=== PATIENT | male | born 1945 | race Caucasian/White ===

== ENCOUNTER 2018-12-18 09:34 | Emergency (ER) | payer OTHER ==
[2018-12-18] MEDS ORDERED: Alum Hydrox/Mag Hydrox/Simeth 30 ML, Lidocaine 2% 15 ML PO ONE ×2 (10:02)
[2018-12-18] MEDS ORDERED: Aluminum Hydroxide/Magnesium Hydroxide/Simethicone Susp 30 ML Cup PO ONE ×2 (10:33→15:36)
[2018-12-18] MEDS ORDERED: Sodium Chloride 0.9% 10 ML Syringe FLUSH PRN (10:47)
[2018-12-18] MEDS ORDERED: Pantoprazole 40 MG Vial IVPUSH ONE (11:23)
--- NOTE | 2018-12-18 11:39 | CRLCR ---
INDICATION: PAIN PRIOR SENT FROM 11-12-2014 TECHNIQUE: Chest 1 view. COMPARISON: 11/12/14 FINDINGS: Cardiovascular and mediastinum: Heart size and vasculature are normal in caliber and appearance. Mediastinum is within normal limits. Lungs and pleural space: Lungs are clear. No sign of infiltrate or mass. No sign of pleural effusion. No pneumothorax. Bones and soft tissues: No significant findings. IMPRESSION: Unremarkable chest. Dictated by: Shayan Pruitt MD @ 12/18/2018 11:39:00 (Electronically Signed)
[2018-12-18] MEDS ORDERED: Nitroglycerin 0.4 MG Tab.SL SL ONE (11:54)
[2018-12-18] MEDS ORDERED: HYDROmorphone 1 MG/ML Syringe IVPUSH ONE (12:22)
[2018-12-18] MEDS ORDERED: Ondansetron 4 MG/2 ML SDV IVPUSH ONE (12:22)
[2018-12-18] MEDS ORDERED: Sodium Chloride 0.9% 10 ML Syringe FLUSH ONE (12:36)
[2018-12-18] MEDS ORDERED: Iopamidol 612 MG/ML 100 ML Bottle IV SCH (12:45)
[2018-12-18] MEDS ORDERED: Sodium Chloride 0.9% 80 ML IV SCH (12:45)
--- NOTE | 2018-12-18 15:08 | CRLCT ---
Indication: Right-sided chest pain Technique: Contrast enhanced CT chest abdomen and pelvis 100 mL Isovue. Comparison: No comparison studies are available Findings: Normal caliber thoracic aorta. Heart size is normal. No mediastinal or hilar adenopathy. No effusion. There is no central endobronchial lesion. Basilar atelectasis. Probable mucus plugging in the left lower lobe. Trace left effusion. Bibasilar atelectasis. Liver pancreas adrenal glands, spleen appears unremarkable. Cholecystectomy. No significant biliary dilatation. Symmetric enhancement of both kidneys. Abundant stool in the colon. There is diverticulosis. Bowel is otherwise unremarkable. Prostate gland is mildly prominent. Urinary bladder is unremarkable. No suspicious bony lesions. Impression: 1. No acute findings in the chest abdomen or pelvis. 2. Probable mucous plugging left lower lobe. 3. Diverticulosis. 4. Mild prominence of the prostate gland. Please note that all CT scans at this facility use dose modulation, iterative reconstruction, and/or weight-based dosing when appropriate to reduce radiation dose to as low as reasonably achievable. Dictated by Francesca Boggs MD @ Dec 18 2018 2:58PM Signed by Dr. Francesca Boggs @ Dec 18 2018 3:07PM
[2018-12-18 16:26] VITALS: BP 149/96; PULSE 70
--- NOTE | 2018-12-18 17:52 | EDM.PDOC ---
ED HPI GENERAL MEDICAL PROBLEM - General Chief Complaint: Chest Pain Stated Complaint: CHEST PAIN Time Seen by Provider: 12/18/18 10:01 Source of Information: Reports: Patient History Limitations: Reports: No Limitations - History of Present Illness INITIAL COMMENTS - FREE TEXT/NARRATIVE: This patient comes in complaining of chest pain. It seemed to start about 9 AM. He says it's from the upper substernal area down into the right side of the lower chest. He said it's a burning type of pain. He tried to throw up and he burped a little bit that helped just a little bit but still doesn't go away. He didn't try taking anything for it. He burped a couple more times and that helped a little bit. He denies any kind of heart trouble denies any thing like reflux. He had his gallbladder removed long ago. There is no shortness of breath and he denies nausea. He does say that sitting up seems to help a little bit. He described initially the pain is about a 7 out of 9 Chest Pain Score (Numeric/FACES): 6 - Related Data Allergies Allergy/AdvReac Type Severity Reaction Status Date / Time No Known Allergies Allergy Verified 12/18/18 09:41 Home Meds: Home Meds Diltiazem [Diltiazem XR] 180 mg PO DAILY 01/04/18 [History] Latanoprost 1 drop EYERT DAILY 01/04/18 [History] Multivitamin [Multi-Vitamin Daily] 1 tab PO DAILY 01/04/18 [History] Naltrexone 50 mg PO DAILY 01/04/18 [History] Rivaroxaban [Xarelto] 20 mg PO DAILY 01/04/18 [History] Sertraline [Zoloft] 100 mg PO BEDTIME 01/04/18 [History] Albuterol Sulfate [Proair Hfa] 1 puff INH ASDIRECTED 12/18/18 [History] Tamsulosin [Flomax] 1 tab PO DAILY 12/18/18 [History] Timolol Maleate [Timoptic 0.5% Ophth Soln] 1 drop EYERT DAILY 12/18/18 [History] Past Medical History HEENT History: Reports: Impaired Vision Cardiovascular History: Reports: Afib Gastrointestinal History: Reports: Cholelithiasis Genitourinary History: Reports: BPH Musculoskeletal History: Reports: Arthritis, Fracture Psychiatric History: Reports: Addiction, Depression Other Psychiatric History: Alcohol addiction. Recent in patient treatment. No alcohol for 3 years. - Past Surgical History GI Surgical History: Reports: Cholecystectomy Other Male Surgeries/Procedures: Bladder scope recent Musculoskeletal Surgical History: Reports: Knee Replacement, ORIF Social & Family History - Tobacco Use Smoking Status *Q: Light Tobacco Smoker Years of Tobacco use: 60 Packs/Tins Daily: 1 - Caffeine Use Caffeine Use: Reports: Coffee - Recreational Drug Use Recreational Drug Use: No ED ROS GENERAL - Review of Systems Review Of Systems: ROS reveals no pertinent complaints other than HPI. Constitutional: Reports: No Symptoms HEENT: Reports: No Symptoms Respiratory: Reports: No Symptoms Cardiovascular: Reports: Chest Pain Endocrine: Reports: No Symptoms GI/Abdominal: Reports: No Symptoms : Reports: No Symptoms ED EXAM, GENERAL - Physical Exam Exam: See Below Exam Limited By: No Limitations General Appearance: Alert, WD/WN, No Apparent Distress Eye Exam: Bilateral Eye: Normal Inspection Nose: Normal Inspection Throat/Mouth: Normal Oropharynx Head: Atraumatic Neck: Normal Inspection Respiratory/Chest: Lungs Clear, Normal Breath Sounds Cardiovascular: Normal Peripheral Pulses, Regular Rate, Rhythm (Does have history of atrial fibrillation), No Murmur GI/Abdominal: Soft, Non-Tender (Negative Silveira sign) Back Exam: Normal Inspection Extremities: Normal Inspection Neurological: Alert, Oriented, CN II-XII Intact, No Motor/Sensory Deficits Psychiatric: Normal Affect Skin Exam: Warm, Dry Course - Vital Signs Last Recorded V/S: Last Vital Signs Temp 35.8 C 12/18/18 09:46 Pulse 70 12/18/18 16:10 Resp 14 12/18/18 16:10 BP 149/96 H 12/18/18 16:10 Pulse Ox 95 12/18/18 16:10 - Orders/Labs/Meds Orders: Active Orders 24 hr Category Date Time Status EKG Documentation Completion [RC] ASDIRECTED Care 12/18/18 10:02 Active EKG Documentation Completion [RC] ASDIRECTED Care 12/18/18 10:47 Active EKG Documentation Completion [RC] ASDIRECTED Care 12/18/18 15:36 Active Iopamidol [Isovue-300 (61%)] Med 12/18/18 12:45 Active 100 ml IV . DIRECTED Sodium Chloride 0.9% [Normal Saline] 80 ml Med 12/18/18 12:45 Active IV ASDIRECTED Sodium Chloride 0.9% [Saline Flush] Med 12/18/18 10:47 Active 10 ml FLUSH ASDIRECTED PRN Saline Lock Insert [OM.PC] Urgent Oth 12/18/18 10:47 Ordered EKG 12 Lead [EK] Urgent Ther 12/18/18 10:02 Ordered EKG 12 Lead [EK] Urgent Ther 12/18/18 10:47 Ordered EKG 12 Lead [EK] Urgent Ther 12/18/18 15:36 Ordered Medication Orders Sodium Chloride (Normal Saline) 80 mls @ 3 mls/sec IV ASDIRECTED SHAMAR Last Admin: 12/18/18 13:38 Dose: 3 mls/sec Iopamidol (Isovue-300 (61%)) 100 ml IV . DIRECTED SHAMAR Last Admin: 12/18/18 13:40 Dose: 100 ml Sodium Chloride (Saline Flush) 10 ml FLUSH ASDIRECTED PRN PRN Reason: Keep Vein Open Last Admin: 12/18/18 11:29 Dose: 10 ml Labs: Laboratory Tests 12/18/18 12/18/18 12/18/18 Range/Units 10:55 10:55 10:55 WBC 10.5 (4.5-11.0) K/uL RBC 4.69 (4.30-5.90) M/uL Hgb 14.2 D (12.0-15.0) g/dL Hct 43.3 (40.0-54.0) % MCV 92 (80-98) fL MCH 30 (27-31) pg MCHC 33 (32-36) % Plt Count 200 (150-400) K/uL Neut % (Auto) 69 H (36-66) % Lymph % (Auto) 21 L (24-44) % Mcdonald % (Auto) 8 H (2-6) % Eos % (Auto) 2 (2-4) % Baso % (Auto) 0 (0-1) % D-Dimer, Quantitative < 100 (0.0-400.0) ng/mL Sodium 138 L (140-148) mmol/L Potassium 4.2 (3.6-5.2) mmol/L Chloride 102 (100-108) mmol/L Carbon Dioxide 29 (21-32) mmol/L Anion Gap 11.2 (5.0-14.0) mmol/L BUN 12 (7-18) mg/dL Creatinine 1.2 (0.8-1.3) mg/dL Est Cr Clr Drug Dosing TNP Estimated GFR (MDRD) 60 (>60) Glucose 122 H (74-106) mg/dL Calcium 9.0 (8.5-10.1) mg/dL Total Bilirubin 0.4 (0.2-1.0) mg/dL AST 13 L (15-37) U/L ALT 16 (12-78) U/L Alkaline Phosphatase 123 H (46-116) U/L Troponin I < 0.017 (0.000-0.056) ng/mL Total Protein 7.5 (6.4-8.2) g/dL Albumin 3.8 (3.4-5.0) g/dL Globulin 3.7 H (2.3-3.5) g/dL Albumin/Globulin Ratio 1.0 L (1.2-2.2) 12/18/18 Range/Units 15:36 WBC (4.5-11.0) K/uL RBC (4.30-5.90) M/uL Hgb (12.0-15.0) g/dL Hct (40.0-54.0) % MCV (80-98) fL MCH (27-31) pg MCHC (32-36) % Plt Count (150-400) K/uL Neut % (Auto) (36-66) % Lymph % (Auto) (24-44) % Mcdonald % (Auto) (2-6) % Eos % (Auto) (2-4) % Baso % (Auto) (0-1) % D-Dimer, Quantitative (0.0-400.0) ng/mL Sodium (140-148) mmol/L Potassium (3.6-5.2) mmol/L Chloride (100-108) mmol/L Carbon Dioxide (21-32) mmol/L Anion Gap (5.0-14.0) mmol/L BUN (7-18) mg/dL Creatinine (0.8-1.3) mg/dL Est Cr Clr Drug Dosing Estimated GFR (MDRD) (>60) Glucose (74-106) mg/dL Calcium (8.5-10.1) mg/dL Total Bilirubin (0.2-1.0) mg/dL AST (15-37) U/L ALT (12-78) U/L Alkaline Phosphatase (46-116) U/L Troponin I < 0.017 (0.000-0.056) ng/mL Total Protein (6.4-8.2) g/dL Albumin (3.4-5.0) g/dL Globulin (2.3-3.5) g/dL Albumin/Globulin Ratio (1.2-2.2) Meds: Medications Generic Name Dose Route Start Last Admin Trade Name Freq PRN Reason Stop Dose Admin Sodium Chloride 80 mls @ 3 mls/sec 12/18/18 12:45 12/18/18 13:38 Normal Saline IV 3 mls/sec ASDIRECTED SHAMAR Administration Iopamidol 100 ml 12/18/18 12:45 12/18/18 13:40 Isovue-300 (61%) IV 100 ml . DIRECTED SHAMAR Administration Sodium Chloride 10 ml 12/18/18 10:47 12/18/18 11:29 Saline Flush FLUSH 10 ml ASDIRECTED PRN Administration Keep Vein Open Discontinued Medications Generic Name Dose Route Start Last Admin Trade Name Freq PRN Reason Stop Dose Admin Al Hydroxide/Mg Hydroxide 30 ml 12/18/18 10:33 12/18/18 10:41 Mag-Al Plus PO 12/18/18 10:34 30 ml ONETIME ONE Administration Al Hydroxide/Mg Hydroxide 30 ml 12/18/18 15:36 12/18/18 16:25 Mag-Al Plus PO 12/18/18 15:37 30 ml ONETIME ONE Administration Al Hydroxide/Mg Hydroxide 30 0 ml 12/18/18 10:02 12/18/18 10:07 ml/ Lidocaine HCl 15 ml PO 12/18/18 10:03 30 ml ONETIME ONE Administration Hydromorphone HCl 1 mg 12/18/18 12:22 12/18/18 13:46 Dilaudid IVPUSH 12/18/18 12:23 1 mg ONETIME ONE Administration Nitroglycerin 0.4 mg 12/18/18 11:54 12/18/18 12:13 Nitrostat SL 12/18/18 11:55 0.4 mg ONETIME ONE Administration Ondansetron HCl 4 mg 12/18/18 12:22 12/18/18 12:54 Zofran IVPUSH 12/18/18 12:23 4 mg ONETIME ONE Administration Pantoprazole Sodium 40 mg 12/18/18 11:23 12/18/18 11:33 Protonix Iv IVPUSH 12/18/18 11:24 40 mg ONETIME ONE Administration Sodium Chloride 10 ml 12/18/18 12:36 12/18/18 13:38 Saline Flush FLUSH 12/18/18 12:37 10 ml ONETIME ONE Administration - Radiology Interpretation Free Text/Narrative:: Chest x-ray shows no acute cardiopulmonary process. CT of the chest abdomen and pelvis unremarkable - Re-Assessments/Exams Free Text/Narrative Re-Assessment/Exam: 12/18/18 17:59 Multiple EKGs on this man show atrial fibrillation and probably an old anterior [place]. I do not see any kind of acute ST or T changes. 12/18/18 18:00 repeat troponin is negative. Initially I tried a GI cocktail this man and it gave just a little bit of relief and then the pain seemed to come back. Then gave 1 dose of regular Maalox. This also help just a little bit but did not make the pain go away. Pain went down to about a 3. IV was established he was given Protonix 40 mg IV. He also tried a sublingual nitroglycerin and that didn't do anything to his discomfort but it did drop his blood pressure for a short while. At the time of discharge she still having a little bit of that burning discomfort on the right side and says it's about a 3 out of 10. Put him on omeprazole and antacids. I suggest he follow-up with his doctor early this coming week but he doesn't have a regular [facility] I suggest you get a regular doctor in the area Departure - Departure Time of Disposition: 17:48 Disposition: Home, Self-Care 01 Condition: Fair Clinical Impression: Reflux esophagitis Instructions: Nonspecific Chest Pain, [id number] Referrals: PCP,None [Primary Care Provider] - Forms: ED Department Discharge Additional Instructions: Your pain sounds a lot like reflux and esophagitis. Take omeprazole magnesium 20 mg twice daily. You can pick this up at [employer], the Cramsterate brand. Be sure to get the capsules and not the tablets. Also pickle processor some Tums or any other antacid. If you use Tums tablets make sure you use 3 or 4 at one time. Plan to see your DrEliseo later this week for a recheck. You can take copies of your lab work with you. It would be garcia to have a local [facility] - My Orders Last 24 Hours: My Active Orders 12/18/18 10:02 EKG Documentation Completion [RC] ASDIRECTED EKG 12 Lead [EK] Urgent 12/18/18 10:47 EKG Documentation Completion [RC] ASDIRECTED Sodium Chloride 0.9% [Saline Flush] 10 ml FLUSH ASDIRECTED PRN Saline Lock Insert [OM.PC] Urgent EKG 12 Lead [EK] Urgent 12/18/18 12:45 Iopamidol [Isovue-300 (61%)] 100 ml IV . DIRECTED Sodium Chloride 0.9% [Normal Saline] 80 ml IV ASDIRECTED 12/18/18 15:36 EKG Documentation Completion [RC] ASDIRECTED EKG 12 Lead [EK] Urgent - Assessment/Plan Last 24 Hours: My Active Orders 12/18/18 10:02 EKG Documentation Completion [RC] ASDIRECTED EKG 12 Lead [EK] Urgent 12/18/18 10:47 EKG Documentation Completion [RC] ASDIRECTED Sodium Chloride 0.9% [Saline Flush] 10 ml FLUSH ASDIRECTED PRN Saline Lock Insert [OM.PC] Urgent EKG 12 Lead [EK] Urgent 12/18/18 12:45 Iopamidol [Isovue-300 (61%)] 100 ml IV . DIRECTED Sodium Chloride 0.9% [Normal Saline] 80 ml IV ASDIRECTED 12/18/18 15:36 EKG Documentation Completion [RC] ASDIRECTED EKG 12 Lead [EK] Urgent
== END 2018-12-18 18:32 | disposition home or self-care (01) ==
LOC: JP.ED 09:34
DX: K21.0 Gastro-esophageal reflux disease with esophagitis (principal); I48.91 Unspecified atrial fibrillation; F32.9 Major depressive disorder, single episode, unspecified; F17.210 Nicotine dependence, cigarettes, uncomplicated; Z79.899 Other long term (current) drug therapy; Z90.49 Acquired absence of other specified parts of digestive tract
CPT/HCPCS: 36415; 71045; 71260; 74177; 80053; 84484; 85025; 85379; 93005; 96374; 96375; 99284; 99285-25; A9270-GY; C9113; J1170; J2405; J7030; Q9967

== ENCOUNTER 2022-05-26 21:59 | Emergency (ER) | payer OTHER ==
[2022-05-26] MEDS ORDERED: Sodium Chloride 0.9% 10 ML Syringe FLUSH PRN (22:19)
[2022-05-26] MEDS ORDERED: fentaNYL 50 MCG/ML SDV IVPUSH ONE ×2 (22:23→23:11)
[2022-05-26 23:37] VITALS: BP 134/85; PULSE 105
== END 2022-05-27 00:01 | disposition home or self-care (01) ==
LOC: JP.ED 21:59
DX: S30.0XXA Contusion of lower back and pelvis, initial encounter (principal); N40.0 Benign prostatic hyperplasia without lower urinary tract symptoms; I48.91 Unspecified atrial fibrillation; Z79.01 Long term (current) use of anticoagulants; Z79.899 Other long term (current) drug therapy; W19.XXXA Unspecified fall, initial encounter
CPT/HCPCS: 36415; 72192; 85025; 96374; 96376; 99284; J3010; J3490

== ENCOUNTER 2023-04-14 11:00 | Emergency (ER) | payer OTHER ==
[2023-04-14] MEDS ORDERED: Sodium Chloride 0.9% 10 ML Syringe FLUSH PRN (12:27)
[2023-04-14 12:45] LABS: BASOPHILS ABSOLUTE AUTO 0.05 K/uL (0.00-0.10); BASOPHILS PERCENT AUTO 0.6 % (0.1-1.3); EOSINOPHILS ABSOLUTE AUTO 0.14 K/uL (0.00-0.40); EOSINOPHILS PERCENT AUTO 1.6 % (0.0-5.4); HEMATOCRIT 42.6 % (38.4-49.7); HEMOGLOBIN 14.3 g/dL (12.9-16.9); IMMATURE GRAN PERCENT AUTO 0.2 % (0.0-0.7); LYMPHOCYTES ABSOLUTE AUTO 2.72 K/uL (0.8-3.3); LYMPHOCYTES PERCENT AUTO 31.8 % (11.4-47.7); MEAN CORPUSCULAR HEMOGLOBIN 32.5 pg (31.6-35.5); MEAN CORPUSCULAR HGB CONC 33.6 g/dL (31.6-35.5); MEAN CORPUSCULAR VOLUME 96.8 fL (81.4-99.0); MONOCYTES ABSOLUTE AUTO 0.68 K/uL (0.20-0.90); NEUTROPHILS ABSOLUTE AUTO 4.94 K/uL (1.0-7.6); NEUTROPHILS PERCENT AUTO 57.8 % (40.0-78.1); PLATELET COUNT,PLT 180 K/uL (130-375); WHITE BLOOD CELL COUNT,WBC 8.6 K/uL (3.2-11.0)
[2023-04-14 12:48] LABS: IMMATURE GRAN ABSOLUTE AUTO 0.02 K/uL (0.00-0.23)
[2023-04-14 13:27] LABS: A/G RATIO 0.9 (1.2-2.2); ALANINE AMINOTRANSFERASE,ALT 17 U/L (12-78); ALBUMIN 3.6 g/dL (3.4-5.0); ALKALINE PHOSPHATASE 92 U/L (46-116); ANION GAP 7.6 mmol/L (5.0-14.0); ASPARTATE AMNIOTRANSFERASE,AST 20 U/L (15-37); BILIRUBIN TOTAL 1.4 mg/dL (0.2-1.0); BLOOD UREA NITROGEN,BUN 10 mg/dL (7-18); CALCIUM 8.8 mg/dL (8.5-10.1); CARBON DIOXIDE,CO2 31 mmol/L (21-32); CHLORIDE,CL 103 mmol/L (100-108); CREATININE 0.9 mg/dL (0.8-1.3); EST CRCL DRUG DOSING (CG) 68.74 mL/min; ESTIMATED GFR 88 mL/min (>60); GLUCOSE RANDOM 91 mg/dL (74-106); POTASSIUM,K 4.1 mmol/L (3.6-5.2); PROTEIN TOTAL,TP 7.5 g/dL (6.4-8.2); SODIUM,NA 142 mmol/L (140-148)
[2023-04-14 13:30] LABS: TROPONIN I HIGH SENSITIVITY 22.3 pg/mL (<=60.3)
[2023-04-14 13:31] LABS: MAGNESIUM 1.8 mg/dL (1.8-2.4); TSH ULTRASENSITIVE 0.62 uIU/mL (0.358-3.740)
[2023-04-14 13:36] LABS: CORONAVIRUS COVID-19 NAA NEGATIVE (NEGATIVE); INFLUENZA A NAA NEGATIVE (NEGATIVE); INFLUENZA B NAA NEGATIVE (NEGATIVE); RESPIRATORY SYNCYTIAL VIR NAA NEGATIVE (NEGATIVE)
[2023-04-14 16:23] VITALS: BP 167/95; PULSE 85
== END 2023-04-14 17:47 | disposition home or self-care (01) ==
LOC: JP.ED 11:00
DX: I63.40 Cerebral infarction due to embolism of unspecified cerebral artery (principal); E87.70 Fluid overload, unspecified; I48.91 Unspecified atrial fibrillation; E78.00 Pure hypercholesterolemia, unspecified; F17.210 Nicotine dependence, cigarettes, uncomplicated; Z79.01 Long term (current) use of anticoagulants; Z79.899 Other long term (current) drug therapy
CPT/HCPCS: 0241U; 36415; 70450; 70450-26; 71045; 71045-26; 80053; 80307; 83735; 83880; 84443; 84484; 85025; 93005; 93010; 99284

== ENCOUNTER 2023-10-02 21:23 | Emergency (ER) | payer OTHER ==
[2023-10-02] MEDS ORDERED: Lidocaine 1% 5 ML VIAL INJECT ONE (21:41)
[2023-10-02 22:18] VITALS: BP 107/77; PULSE 91
== END 2023-10-02 22:43 | disposition home or self-care (01) ==
LOC: JP.ED 21:23
DX: S01.112A Laceration without foreign body of left eyelid and periocular area, initial encounter (principal); E78.00 Pure hypercholesterolemia, unspecified; F17.210 Nicotine dependence, cigarettes, uncomplicated; Z86.73 Personal history of transient ischemic attack (TIA), and cerebral infarction without residual deficits; Z79.899 Other long term (current) drug therapy; W01.198A Fall on same level from slipping, tripping and stumbling with subsequent striking against other object, initial encounter; Y92.002 Bathroom of unspecified non-institutional (private) residence as the place of occurrence of the external cause
CPT/HCPCS: 12014; 99283